=== PATIENT | female | born 1940 | race Caucasian/White ===

== ENCOUNTER 2017-02-06 07:50 | Outpatient (CLI) | payer MEDICARE ==
[2017-02-06 08:51] LABS: Hemoglobin 11.4 g/dL (12.0-16.0); Mean Corpuscular HGB CONC 32.5 g/dL (32.0-36.0); Mean Corpuscular Hemoglobin 34.2 pg (27.0-31.0); Mean Corpuscular Volume 105.4 fl (81.0-99.0); Mean Platelet Volume 6.9 fL (7.4-10.4); Platelet Count 238 thou/uL (130-400); RBC Distribution Width 13.4 % (11.5-14.5); Red Blood Cell (RBC) Count 3.38 mill/uL (4.20-5.40); White Blood Cell (WBC) Count 7.2 thou/uL (4.8-10.8)
--- NOTE | 2017-02-06 08:52 | ULT ---
RIGHT UPPER QUADRANT ULTRASOUND: History: Right upper quadrant pain. FINDINGS: The patient is post cholecystectomy. The common duct is normal caliber at 3 mm. Visualized aorta and IVC are unremarkable. The visualized liver appears unremarkable. Pancreas is mos tly obscured by overlying bowel gas. Right kidney is imaged. No hydronephrosis seen. There is an exophytic partially cystic structure which appears to arise from the inferior pole of the right kidney measuring up to 3.5 cm. This may represent a complex cyst. At least two of the images s how echogenicity suggesting a soft tissue component. This will require evaluation with CT to better c haracterize. IMPRESSION: 1. Exophytic hypoechoic mass arising from the inferior pole of the right kidney appears complex. Mehrdad mmend further evaluation with pre and post contrast CT abdomen. 2. Patient is post cholecystectomy. POS: [facility]
[2017-02-06 09:02] LABS: Anisocytosis SLIGHT = 6-15 cells (100X) (0-5/hpf); Band 1 % (5-11); Eosinophils 1 % (0-10); Lymphocytes 47 % (21-51); MDiff Complete? YES; Manual Diff?? YES; Monocytes 7 % (0-10); Neutrophil 44 % (42-75)
[2017-02-06 09:03] LABS: PLT Morphology Comment Appears Adequate
[2017-02-06 09:08] LABS: ALT (SGPT) 10 U/L (8-55); AST (SGOT) 11 U/L (5-34); Albumin 3.9 g/dL (3.4-4.8); Alkaline Phosphatase 74 U/L (40-150); Anion Gap 15 mmol/L (10-20); BUN (Urea Nitrogen) 33 mg/dL (9.8-20.1); Bilirubin, Total 0.4 mg/dL (0.2-1.2); Calc. Creatinine Clearance 0 mL/min (70-130); Calcium 9.3 mg/dL (7.8-10.44); Carbon Dioxide 21 mmol/L (23-31); Chloride 108 mmol/L (98-107); Estimated GFR-MDRD 48; Globulin 2.7 g/dL (2.4-3.5); Glucose 104 mg/dL (83-110); Potassium 4.8 mmol/L (3.5-5.1); Protein, Total 6.6 g/dL (6.0-8.3); Sodium 139 mmol/L (136-145)
== END 2017-02-06 07:51 | disposition home or self-care (01) ==
LOC: MADLABBHPM 07:50
PROVIDERS: ATTEND Family Medicine
DX: R10.11 Right upper quadrant pain (principal); N28.89 Other specified disorders of kidney and ureter; Z90.49 Acquired absence of other specified parts of digestive tract
CPT/HCPCS: 36415; 76705; 80053; 85025

== ENCOUNTER 2017-03-13 10:39 | Outpatient (CLI) | payer MEDICARE ==
[2017-03-13 17:35] LABS: Folate (Folic Acid) 17.3 ng/mL (7.0-31.4)
== END 2017-03-13 10:40 | disposition home or self-care (01) ==
LOC: MADLABBHPM 10:39
PROVIDERS: ATTEND Family Medicine
DX: D64.9 Anemia, unspecified (principal); N28.89 Other specified disorders of kidney and ureter
CPT/HCPCS: 36415; 82565; 82607; 82746

== ENCOUNTER 2017-03-18 15:38 | Outpatient (CLI) | payer MEDICARE ==
[~2017-03-18 15:38] MED LIST: Iopamidol 370 76% 100 ML VIAL ONE
--- NOTE | 2017-03-18 18:40 | CT ---
CT ABDOMEN WITH AND WITHOUT CONTRAST CT PELVIS WITH AND WITHOUT CONTRAST (Renal mass and hematuria protocol) 03/18/17 HISTORY: 76-year-old female with right renal lesion found on gallbladder ultrasound of 02/06/17. COMPARISON: Right upper quadrant gallbladder ultrasound of 02/06/17 and lumbar spine MRI of 10/14/14. No prior CTs of abdomen and pelvis. TECHNIQUE: No oral contrast given. IV contrast administered. Precontrast, venous/nephrographic phase, and excretory/pyelographic phase, scans of entire abdomen an d pelvis. Coronal reconstruction of the excretory phase scan. FINDINGS: There is a thin walled, approximately 3 x 2 x 2 cm exophytic cortical cyst protruding laterally and i nferiorly from the right renal lower pole cortex with precontrast, nephrographic phase, and delayed p hase densities of 8, 8, and 8 HU, respectively. This has grown slowly since the MRI of 10/14/14. There is no enhancing nodular component. There is no surrounding fat stranding. There are no renal, ureteral, or bladder calculi. There is no other cystic lesion or any other perfus ion defects, and no solid mass, involving bilateral renal parenchyma. There is no hydroureteronephros is. Urinary bladder is normal. There is a very large number of tiny calcified granuloma throughout th e spleen. No splenomegaly. Fewer number of tiny calcified granulomata in the liver. Otherwise, the li steve is normal. No major pathology identified involving the abdominal aorta, left kidney, or right adr enal gland. A nonspecific small slightly less than 1 cm left adrenal nodule, too small to characteriz e. Atrophic pancreas. No pancreatic calcification or acute pancreatitis. Large number of diverticula throughout the sigmoid colon without signs of acute diverticulitis. No free fluid or free air within the abdominal cavity or pelvic cavity. Lung bases are grossly clear. No pleural effusion. No destruct nova osseous lesion identified. 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 Severe central spinal canal stenosis at one of the levels in the lower lumbar spine. An array of porter tures in the right anterior abdominal wall. IMPRESSION: 1. Benign right renal lower pole cyst corresponds to the sonographically identified right renal lesion. 2. No evidence of malignancy. 3. Sigmoid colonic diverticulosis without diverticulitis. 4. Evidence of previous right sided abdominal surgery. 5. Lumbar spondylosis. POS: [facility]
== END 2017-03-18 15:39 | disposition home or self-care (01) ==
LOC: MADCT 15:38
PROVIDERS: ATTEND Family Medicine
DX: N28.89 Other specified disorders of kidney and ureter (principal); N28.1 Cyst of kidney, acquired; K57.30 Diverticulosis of large intestine without perforation or abscess without bleeding; M47.896 Other spondylosis, lumbar region
CPT/HCPCS: 74178

== ENCOUNTER 2017-07-08 13:28 | Outpatient (CLI) | payer MEDICARE ==
--- NOTE | 2017-07-08 14:22 | RAD ---
4 VIEWS LEFT KNEE: Date: 07/08/17 HISTORY: Left knee pain. FINDINGS: AP, lateral, and both oblique views of left knee obtained. Images demonstrate joint space narrowing i n the medial compartment of the left knee. Osteophytes seen in the medial compartment. Findings hunter tible with moderate degree of medial compartment left knee osteoarthritic changes. The anterior and l ateral compartments are unremarkable. IMPRESSION: Medial compartment left knee osteoarthritic changes. POS: [facility]
== END 2017-07-08 13:29 | disposition home or self-care (01) ==
LOC: MADRAD 13:28
PROVIDERS: ATTEND Family Medicine
DX: M25.562 Pain in left knee (principal); G89.29 Other chronic pain; M17.12 Unilateral primary osteoarthritis, left knee

== ENCOUNTER 2018-02-18 08:17 | Outpatient (CLI) | payer MEDICARE ==
--- NOTE | 2018-02-18 10:26 | CT ---
CT ABDOMEN AND PELVIS WITH AND WITHOUT IV CONTRAST: Date: 02-18-18 Provided Clinical History: Follow up renal cyst. FINDINGS: Comparison 03-18-17. The visualized lung bases are clear of significant opacity. The previously described benign inferior pole right renal cyst demonstrates interval decrease in size since the prior study, now measuring approximately 1.2 cm in greatest transverse dimension (as hunter red to about 2.1 cm in greatest transverse dimension on the prior study). The solid abdominal organs demonstrate an otherwise stable CT appearance. There is no evidence for renal collecting system or ur eteral filling defect. Urinary bladder appears grossly unremarkable. There is no bowel dilatation, inflammatory fat stranding, free fluid or lymph node enlargement appare nt. The osseous structures demonstrate no concerning lytic or blastic lesions. Vascular calcifications ar e seen. Changes of prior cholecystectomy are seen. Degenerative changes are noted involving the lumba r spine. Sigmoid colonic diverticulosis is redemonstrated without CT evidence for diverticulitis. Post-operati ve changes involving the right abdominal wall are again seen. IMPRESSION: Interval decrease in size of benign inferior pole right renal cyst. POS: [facility]
[2018-02-18] MEDS ORDERED: Iopamidol 370 76% 100 ML VIAL ONE (10:42)
== END 2018-02-18 08:18 | disposition home or self-care (01) ==
LOC: MADCT 08:17
PROVIDERS: ATTEND Family Medicine
DX: M54.5 Low back pain (principal); N28.1 Cyst of kidney, acquired
CPT/HCPCS: 36415; 74178; 82565

== ENCOUNTER 2019-12-06 13:05 | Outpatient (CLI) | payer MEDICARE | END 2019-12-06 13:06 | disposition home or self-care (01) | LOC: MADEKG 13:05 | PROVIDERS: ATTEND Family Medicine | DX: Z01.818 Encounter for other preprocedural examination (principal) | CPT/HCPCS: 93005; 93010 ==

== ENCOUNTER 2020-01-27 10:09 | Outpatient (CLI) | payer MEDICARE ==
[2020-01-27 11:04] LABS: #Basophils 0.1 thou/uL (0.0-0.2); #Eosinphils 0.2 thou/uL (0.0-0.7); #Lymphocytes 3.3 thou/uL (1.20-3.40); #Monocytes 0.5 thou/uL (0.11-0.59); %Basophils 1.5 % (0.0-1.0); %Eosinophils 2.6 % (0.0-10.0); %Lymphocytes 40.6 % (21.0-51.0); %Monocytes 6.2 % (0.0-10.0); %Neutrophils 49.2 % (42.0-75.0); Hemoglobin 12.9 g/dL (12.0-16.0); Mean Corpuscular HGB CONC 31.5 g/dL (32.0-36.0); Mean Corpuscular Hemoglobin 32.1 pg (27.0-31.0); Mean Corpuscular Volume 101.8 fL (78.0-98.0); Mean Platelet Volume 6.6 fL (7.4-10.4); Platelet Count 273 thou/uL (130-400); RBC Distribution Width 13.2 % (11.5-14.5); Red Blood Cell (RBC) Count 4.02 mill/uL (4.20-5.40); White Blood Cell (WBC) Count 8.2 thou/uL (4.8-10.8)
[2020-01-27 11:13] LABS: Anion Gap 21 mmol/L (10-20); BUN (Urea Nitrogen) 14 mg/dL (9.8-20.1); Calc. Creatinine Clearance 0 mL/min (70-130); Calcium 9.5 mg/dL (7.8-10.44); Carbon Dioxide 24 mmol/L (23-31); Chloride 99 mmol/L (98-107); Glucose 169 mg/dL (83-110); Sodium 140 mmol/L (136-145); Uric Acid 4.7 mg/dL (2.6-6.0)
== END 2020-01-27 10:10 | disposition home or self-care (01) ==
LOC: MADLAB 10:09
PROVIDERS: ATTEND Family Medicine
DX: I10 Essential (primary) hypertension (principal); M10.9 Gout, unspecified; D53.9 Nutritional anemia, unspecified
CPT/HCPCS: 36415; 80048; 84550; 85025